=== PATIENT | female | born 1955 | race African-American/Black ===

== ENCOUNTER → 2017-10-27 | Outpatient (CLI) | payer OTHER ==
[2016-09-21 01:33] VITALS: BP 143/70
--- NOTE | 2017-10-27 09:57 | CT ---
HISTORY: Pulmonary nodules. Study: CT chest without contrast Comparison: CT chest dated September 20, 2016. Technique: Multiple axial images of the chest were obtained from the thoracic inlet to the upper abdo men without the administration of IV contrast. MIP images were obtained. Dose reduction techniques in cluding Automated Exposure Control (AEC) and adjustment of mA and kV were utilized. Findings: The mediastinum does not demonstrate significant pathological lymphadenopathy. There is no paracardi al effusion observed. The thoracic aorta is normal in its contour without evidence for aneurysmal di latation. Stable appearance of a 4 mm pulmonary nodule along the right major fissure (series 3, image 29). Stab le appearance of a 4 mm right middle lobe pulmonary nodule (series 3, image 38). Stable appearance of a 4 mm right middle lobe pulmonary nodule (series 3 image 47). Stable appearance of a subpleural 3 m m left lower lobe pulmonary nodule (series 3 image 44). Stable appearance of a 3 mm subpleural left l ower lobe pulmonary nodule (series 3, image 45). No new pulmonary nodules, mass, focal consolidation, pleural effusion, or pneumothorax. The gallbladder is surgically absent. Remaining upper abdominal s tructures appear normal. Partially visualized cervical hardware. Degenerative changes of the spine. N o aggressive osseous lesions. IMPRESSION: 1. No CT evidence of acute thoracic pathology. 2. Multiple stable appearing bilateral pulmonary nodules, the largest measuring 4 mm within the right lung. ACR LUNG RADS CATEGORY 2: Repeat CT chest in 12 months. Reported By:
== END ==
LOC: RAD 09:09
PROVIDERS: ATTEND Nurse Practitioner
DX: Z12.31 Encounter for screening mammogram for malignant neoplasm of breast (principal); R94.8 Abnormal results of function studies of other organs and systems
CPT/HCPCS: 71250; 77067

== ENCOUNTER 2017-12-30 19:11 | Emergency (ER) | payer OTHER ==
[2017-12-30 19:19] VITALS: BP 143/84; BMI 43.2
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
[2017-12-30] MEDS ORDERED: ATIVAN INJ 2 MG VIAL ONE (20:47)
[2017-12-30] MEDS ORDERED: ATIVAN INJ 2 MG VIAL IM ONE (20:47)
== END 2017-12-30 21:10 | disposition home or self-care (01) ==
LOC: ER 19:22
DX: F41.9 Anxiety disorder, unspecified (principal); F43.0 Acute stress reaction
CPT/HCPCS: 96372; 99282; J2060